=== PATIENT | male | born 1995 | race Caucasian/White ===

== ENCOUNTER 2018-11-08 11:07 | Emergency (ER) | payer OTHER ==
[~2018-11-08] VITALS: Ht 175.3 cm; Wt 75.0 kg
[2018-11-08] MEDS ORDERED: SODIUM CHLORIDE 0.9% 1,000 ML IV ONE (18:24)
[2018-11-08] MEDS ORDERED: FAMOTIDINE 20MG TABLET PO ONE (18:30)
[2018-11-08] MEDS ORDERED: ASPIRIN 81MG TABLET PO ONE (18:30)
[2018-11-08 18:34] LABS: BASOPHILS % 0.2 % (0.0-2.0); EOSINOPHILS % 3.1 % (0.0-5.0); HEMATOCRIT. 45.4 % (42.0-52.0); HEMOGLOBIN. 15.5 g/dL (14.0-18.0); MEAN CORPUSCULAR HEMOGLOBIN 30.1 pg (28.0-32.0); MEAN CORPUSCULAR VOLUME 88.3 fL (80.0-94.0); MEAN PLATELET VOLUME 8.3 fl (7.4-10.4); MONOCYTES % 4.3 % (2.0-8.0); NEUTROPHILS % 64.4 % (40.0-76.0); PLATELET 348 x1000/uL (130-400); RED BLOOD CELL COUNT 5.14 mill/uL (4.7-6.1); RED CELL DISTRIBUTION WIDTH 13.2 % (11.6-14.6)
[2018-11-08 18:35] LABS: CHLORIDE 105 mEq/L (98-107)
[2018-11-08 21:53] VITALS: BP 94/52
== END 2018-11-08 21:58 | disposition home or self-care (01) ==
LOC: ER 11:07
DX: R07.89 Other chest pain (principal); R51 Headache; Z72.820 Sleep deprivation; Z56.3 Stressful work schedule
CPT/HCPCS: 36415; 71045; 80053; 83880; 84484; 85025; 93005; 99284; J7030; Z7610